=== PATIENT | female | born 1930 | race Caucasian/White ===

== ENCOUNTER 2018-03-15 15:28 | Emergency (ER) | payer MEDICARE ==
[2018-03-15 16:15] VITALS: BP 134/62
--- NOTE | 2018-03-15 16:24 | UC ---
Head Injury HPI - HPI Summary HPI Summary: tripped going up the stairs and fell hitting head on a trunk with laceration. No LOC. Some mild neck aching. - History Of Current Complaint Chief Complaint: UCLaceration Stated Complaint: HEAD INJURY Hx Obtained From: Patient, Family/Senior Software Qa Analyst Onset/Duration: Sudden Onset, Lasting Hours - 3 Severity Currently: Moderate Severity Initially: Moderate Pain Intensity: 5 Character: Dull Aggravating Factor(s): Nothing Alleviating Factor(s): Nothing Associated Signs And Symptoms: Positive: Neck Pain. Negative: LOC (Time In Secs./Mins/Hrs), LOC Duration Unknown, Confusion, Memory Loss, Seizure - Risk Factors SDH Risk Factor: Recent Trauma - Allergies/Home Medications Allergies/Adverse Reactions: Allergies Allergy/AdvReac Type Severity Reaction Status Date / Time Penicillins Allergy Hallucinati Verified 03/15/18 16:17 ons Home Medications: Home Medications Calcium Carbonate [Calcium] 600 mg PO BEDTIME 03/15/18 [History Confirmed ] Rosuvastatin Calcium [Crestor] 5 mg PO BEDTIME 03/15/18 [History Confirmed 03/15] PMH/Surg Hx/FS Hx/Imm Hx Cardiovascular History: Atrial Fibrillation - resolved Respiratory History: COPD Neurological History: Dementia - Surgical History Surgical History: Yes Surgery Procedure, Year, and Place: Hysterectomy - Family History Known Family History: Positive: Cardiac Disease - Social History Occupation: Retired Lives: With Family Alcohol Use: None Substance Use Type: None Smoking Status (MU): Never Smoked Tobacco - Immunization History Most Recent Tetanus Shot: unknown Review of Systems Skin: Other - wound occipital scalp Musculoskeletal: Arthralgia - some neck pain Is Patient Immunocompromised?: No All Other Systems Reviewed And Are Negative: Yes Physical Exam Triage Information Reviewed: Yes Appearance: Well-Appearing, No Pain Distress, Well-Nourished Vital Signs: Initial Vital Signs Temp 96.9 F 03/15/18 15:46 Pulse 71 03/15/18 15:46 Resp 20 03/15/18 15:46 BP 134/62 03/15/18 15:46 Pulse Ox 99 03/15/18 15:46 Vital Signs Reviewed: Yes Eyes: Positive: Conjunctiva Clear Neck: Positive: Supple, Nontender - no spinous process tenderness Respiratory Exam: Normal Cardiovascular Exam: Normal Musculoskeletal Exam: Normal Neurological Exam: Normal Psychological Exam: Normal Skin: Positive: Other - 1.9 cm laceration occipital scalp Procedures - Laceration/Wound Repair 1 Location: head - occipital scalp Description: Irregular Length, Depth and Shape: slight curve in laceration. Betadine Prep?: Yes Irrigated w/ Saline (ccs): 200 Laceration/Wound Explored: clean Closure: Ana #__ - 3 Head Injury Course/Dx - Differential Dx/Diagnosis Differential Diagnosis/HQI/PQRI: Cervical Sprain, Contusion, Laceration Provider Diagnoses: Laceration scalp Discharge - Sign-Out/Discharge Documenting (check all that apply): Patient Departure All imaging exams completed and their final reports reviewed: No Studies - Discharge Plan Condition: Stable Disposition: HOME Patient Education Materials: Staple Care (ED) Referrals: Avni Araujo MD [Primary Care Provider] - Additional Instructions: Follow up for staple removal in 10 days. - Billing Disposition and Condition Condition: STABLE Disposition: Home
[2018-03-15] MEDS ORDERED: Tetan/Diph/Pertus SYR(Tdap)* 0.5 ML SYR(BOOSTRIX) use SYR IM ONE (16:44)
== END 2018-03-15 17:10 | disposition home or self-care (01) ==
LOC: UCCORT 15:28
DX: S01.01XA Laceration without foreign body of scalp, initial encounter (principal); J44.9 Chronic obstructive pulmonary disease, unspecified; F03.90 Unspecified dementia, unspecified severity, without behavioral disturbance, psychotic disturbance, mood disturbance, and anxiety; W10.9XXA Fall (on) (from) unspecified stairs and steps, initial encounter; Y92.9 Unspecified place or not applicable; Z88.0 Allergy status to penicillin
CPT/HCPCS: 12001; 90471; 90715; 99211; G0463

== ENCOUNTER 2018-03-24 10:51 | Emergency (ER) | payer MEDICARE ==
[2018-03-24 11:05] VITALS: BP 127/61
--- NOTE | 2018-03-24 11:41 | UC ---
Skin Complaint HPI - HPI Summary HPI Summary: HERE FOR STAPLE REMOVAL. PLACED A WEEK AGO THIS PAST SATURDAY. DENIES HEADACHE, DIZZY, N/V, BALANCE ISSUES. DNEIS ANY COMPLAINTS. - History of Current Complaint Chief Complaint: UCSkin Time Seen by Provider: 03/24/18 11:35 Stated Complaint: STAPLE REMOVAL - DONE HERE Hx Obtained From: Patient, Family/Application Development Specialist Pain Intensity: 0 Aggravating Factor(s): Nothing Alleviating Factor(s): Nothing - Allergy/Home Medications Allergies/Adverse Reactions: Allergies Allergy/AdvReac Type Severity Reaction Status Date / Time Penicillins Allergy Hallucinati Verified 03/24/18 11:00 ons Review of Systems Constitutional: Negative Skin: Other - KESHA IN SCALP Eyes: Negative ENT: Negative Respiratory: Negative Cardiovascular: Negative Gastrointestinal: Negative Genitourinary: Negative Motor: Negative Neurovascular: Negative Musculoskeletal: Negative Neurological: Negative Psychological: Negative Is Patient Immunocompromised?: No All Other Systems Reviewed And Are Negative: Yes PMH/Surg Hx/FS Hx/Imm Hx - Additional Past Medical History Additional PMH: MEMORY ISSUES Endocrine History: Dyslipidemia - Surgical History Surgical History: Yes Surgery Procedure, Year, and Place: Hysterectomy - Family History Known Family History: Positive: Cardiac Disease - Social History Occupation: Retired Lives: With Family Alcohol Use: None Substance Use Type: None Smoking Status (MU): Never Smoked Tobacco - Immunization History Most Recent Tetanus Shot: unknown Vaccination Up to Date: Yes Physical Exam Triage Information Reviewed: Yes Appearance: Well-Appearing Vital Signs: Initial Vital Signs Temp 98.2 F 03/24/18 11:01 Pulse 63 03/24/18 11:01 Resp 20 03/24/18 11:01 BP 127/61 03/24/18 11:01 Pulse Ox 100 03/24/18 11:01 Vital Signs Reviewed: Yes Eyes: Positive: Conjunctiva Clear ENT: Positive: Normal ENT inspection Neck: Positive: Supple, Nontender, No Lymphadenopathy Respiratory: Positive: Lungs clear, Normal breath sounds Cardiovascular: Positive: RRR, No Murmur Abdomen Description: Positive: Nontender, No Organomegaly, Soft Bowel Sounds: Positive: Present Musculoskeletal: Positive: ROM Intact Neurological: Positive: Alert Psychological: Positive: Normal Response To Family, Age Appropriate Behavior Skin Exam: Normal, Other - 3 STAPLE BACK OF HEAD. WOUND HEALED WITH NO ERYTHEMA. NO STEP OFF OR INSTABILITY. Course/Dx - Course Course Of Treatment: KESHA REMOVED, PT TOLERATED WELL. - Diagnoses Provider Diagnoses: STAPLE REMOVAL FROM SCALP. Discharge - Sign-Out/Discharge Documenting (check all that apply): Patient Departure All imaging exams completed and their final reports reviewed: No Studies - Discharge Plan Condition: Stable Disposition: HOME Patient Education Materials: Head Injury (ED), Stitches Removal (ED) Referrals: Avni Araujo MD [Primary Care Provider] - If Needed - Billing Disposition and Condition Condition: STABLE Disposition: Home - Attestation Statements Provider Attestation: Per institutional requirements, I have reviewed the chart, however, I was not consulted specifically or made aware of this patient by the midlevel provider. I did not personally evaluate, interact with , or disposition this patient.
== END 2018-03-24 11:50 | disposition home or self-care (01) ==
LOC: UCCORT 10:51
DX: S01.01XD Laceration without foreign body of scalp, subsequent encounter (principal); X58.XXXD Exposure to other specified factors, subsequent encounter; Z88.0 Allergy status to penicillin

== ENCOUNTER 2018-07-15 09:05 | Emergency (ER) | payer MEDICARE ==
[2018-07-15 09:47] VITALS: BP 143/61
--- NOTE | 2018-07-15 10:29 | UC ---
Hand/Wrist HPI - History Of Current Complaint Chief Complaint: UCUpperExtremity Stated Complaint: RIGHT HAND SWOLLEN Time Seen by Provider: 07/15/18 09:51 Pain Intensity: 10 - Allergies/Home Medications Allergies/Adverse Reactions: Allergies Allergy/AdvReac Type Severity Reaction Status Date / Time Penicillins Allergy Hallucinati Verified 07/15/18 09:40 ons Home Medications: Home Medications Multivitamins/Minerals TAB* [Theragran/minerals TAB*] 1 tab PO DAILY 07/15/18 [ History Confirmed 07/15/18] PMH/Surg Hx/FS Hx/Imm Hx - Additional Past Medical History Additional PMH: Dementia; Before 2014 visit here hospitialization from UTI for dehydration and noticed a-fib and possible passage of gall stones. Risk for fall. High-cholesterol, pneumonia hospitalization Cardiovascular History: Atrial Fibrillation Respiratory History: COPD - Surgical History Surgical History: Yes Surgery Procedure, Year, and Place: Hysterectomy - Family History Known Family History: Positive: Cardiac Disease - Social History Alcohol Use: None Substance Use Type: None Smoking Status (MU): Never Smoked Tobacco - Immunization History Most Recent Tetanus Shot: unknown Vaccination Up to Date: Yes Review of Systems All Other Systems Reviewed And Are Negative: Yes Constitutional: Positive: Negative Skin: Positive: Negative Eyes: Positive: Negative ENT: Positive: Negative Is Patient Immunocompromised?: No Physical Exam Triage Information Reviewed: Yes Appearance: Well-Appearing, No Pain Distress, Well-Nourished Vital Signs: Initial Vital Signs Temp 98.4 F 07/15/18 09:41 Pulse 77 07/15/18 09:41 Resp 19 07/15/18 09:41 BP 143/61 07/15/18 09:41 Pulse Ox 99 07/15/18 09:41 Vital Signs Reviewed: Yes Eye Exam: Normal Eyes: Positive: Conjunctiva Clear ENT: Positive: Normal ENT inspection, Hearing grossly normal, Pharynx normal Neck: Positive: Supple, Nontender, No Lymphadenopathy Respiratory: Positive: Chest non-tender, Lungs clear, Normal breath sounds Cardiovascular: Positive: RRR, No Murmur, Pulses Normal Abdominal Exam: Normal Bowel Sounds: Positive: Present Musculoskeletal: Positive: Other: - right wrist : + swelling, no erythema , diffuse tenderness, limited ROM on Flexion and Extension, limited Strength Diagnostics - Laboratory Diagnostic Studies Completed/Ordered: xray right Wrist : IMPRESSION: #. Degenerative arthropathy with osteochondromatosis. Hand/Wrist Course/Dx - Differential Dx/Diagnosis Provider Diagnosis: Arthritis of wrist, right Discharge - Sign-Out/Discharge Documenting (check all that apply): Patient Departure All imaging exams completed and their final reports reviewed: Yes - Discharge Plan Condition: Stable Disposition: HOME Patient Education Materials: Arthritis (ED) Referrals: Avni Araujo MD [Primary Care Provider] - 2 Weeks - Billing Disposition and Condition Condition: STABLE Disposition: Home
== END 2018-07-15 10:36 | disposition home or self-care (01) ==
LOC: UCCORT 09:05
DX: M13.831 Other specified arthritis, right wrist (principal); F03.90 Unspecified dementia, unspecified severity, without behavioral disturbance, psychotic disturbance, mood disturbance, and anxiety; J44.9 Chronic obstructive pulmonary disease, unspecified; Z88.0 Allergy status to penicillin
CPT/HCPCS: 99212; G0463

== ENCOUNTER 2018-07-22 09:30 | Emergency (ER) | payer MEDICARE ==
[2018-07-22 09:53] VITALS: BP 136/41
--- NOTE | 2018-07-22 10:02 | UC ---
Lower Extremity/Ankle HPI - HPI Summary HPI Summary: right ankle pain x 2 days twisted her right ankle 2 days ago as she fell down on ice pain and swelling lateral ankle - History of Current Complaint Chief Complaint: UCLowerExtremity Stated Complaint: RT ANKLE INJURY Time Seen by Provider: 07/22/18 09:54 Hx Obtained From: Patient, Family/Blocker And Cutter Contact Lens Onset/Duration: Sudden Onset, Lasting Days - 2, Still Present Severity Initially: Moderate Severity Currently: Moderate Pain Intensity: 8 Aggravating Factor(s): Standing, Ambulation Alleviating Factor(s): Rest, Elevation, Ice Able to Bear Weight: Yes - Allergies/Home Medications Allergies/Adverse Reactions: Allergies Allergy/AdvReac Type Severity Reaction Status Date / Time Penicillins Allergy Hallucinati Verified 07/22/18 09:48 ons Home Medications: Home Medications Acetaminophen TAB* [Tylenol TAB*] 650 mg PO TID PRN 07/22/18 [History Confirmed 07/22/18] PMH/Surg Hx/FS Hx/Imm Hx - Additional Past Medical History Additional PMH: Dementia; Before 2014 visit here hospitialization from UTI for dehydration and noticed a-fib and possible passage of gall stones. Risk for fall. High-cholesterol, pneumonia hospitalization [ End ] Cardiovascular History: Atrial Fibrillation Respiratory History: COPD Neurological History: Dementia - Surgical History Surgical History: Yes Surgery Procedure, Year, and Place: Hysterectomy - Family History Known Family History: Positive: Cardiac Disease - Social History Alcohol Use: None Substance Use Type: None Smoking Status (MU): Never Smoked Tobacco - Immunization History Most Recent Tetanus Shot: unknown Vaccination Up to Date: Yes Review of Systems All Other Systems Reviewed And Are Negative: Yes Constitutional: Positive: Negative Skin: Positive: Negative Eyes: Positive: Negative ENT: Positive: Negative Respiratory: Positive: Negative Is Patient Immunocompromised?: No Physical Exam Triage Information Reviewed: Yes Completion Of Physical Exam Limited Due To: Dementia Appearance: Well-Appearing, No Pain Distress, Well-Nourished Vital Signs: Initial Vital Signs Temp 97.8 F 07/22/18 09:49 Pulse 80 07/22/18 09:49 Resp 18 07/22/18 09:49 BP 136/41 07/22/18 09:49 Pulse Ox 100 07/22/18 09:49 Vital Signs Reviewed: Yes Eyes: Positive: Conjunctiva Clear ENT: Positive: Normal ENT inspection, Hearing grossly normal, Pharynx normal Neck: Positive: Supple, Nontender, No Lymphadenopathy Respiratory: Positive: Chest non-tender, Lungs clear, Normal breath sounds Cardiovascular: Positive: RRR, No Murmur, Pulses Normal Musculoskeletal: Positive: Other: - right ankle : + swelling, ecchymosis, tenderness lateral ankle , Diagnostics - Laboratory Diagnostic Studies Completed/Ordered: right ankle xray : IMPRESSION: OBLIQUE SLIGHTLY DISPLACED INTRA-ARTICULAR FRACTURE OF THE DISTAL FIBULA. Lower Extremity Course/Dx - Differential Dx/Diagnosis Provider Diagnosis: Fracture of right ankle Discharge - Sign-Out/Discharge Documenting (check all that apply): Patient Departure All imaging exams completed and their final reports reviewed: Yes - Discharge Plan Condition: Stable Disposition: HOME Patient Education Materials: Ankle Fracture (ED) Referrals: Avni Araujo MD [Primary Care Provider] - Lopez De Dios MD [Medical Doctor] - - Billing Disposition and Condition Condition: STABLE Disposition: Home
== END 2018-07-22 10:55 | disposition home or self-care (01) ==
LOC: UCCORT 09:30
DX: S82.891A Other fracture of right lower leg, initial encounter for closed fracture (principal); J44.9 Chronic obstructive pulmonary disease, unspecified; Z88.0 Allergy status to penicillin; W00.9XXA Unspecified fall due to ice and snow, initial encounter; Y92.9 Unspecified place or not applicable
CPT/HCPCS: 99212; G0463